=== PATIENT | male | born 1995 | race African-American/Black ===

== ENCOUNTER 2023-07-17 21:54 | Observation (INO) | payer SELFPAY ==
[2023-07-17 16:31] VITALS: BP 160/111
[2023-07-17 18:00] VITALS: BMI 34.9
[2023-07-17 18:01] VITALS: BP 147/84
--- NOTE | 2023-07-17 18:17 | ED.GENMED ---
History of Present Illness
General
Chief Complaint: Numbness
Source: patient
Time Seen by Provider: 07/17/23 18:06
Travel History
Have you had any contact with someone who has COVID-19?: No
Do you have any symptoms of coronavirus? Fever > 100 degrees, chills, cough, shortness of breath, sore throat, loss of taste or smell, muscle aches, or headache?: No
History of Present Illness
History of Present Illness:
27-year-old male otherwise healthy presents with 5 or 6 days worth of numbness to the left side of his body. He states on his face his arm and his leg. He denies any weakness on the left side. He denies any headache current chest pain shortness
of breath. He does note associated generalized fatigue. He denies rash. No vision change. No abdominal pain or nausea or vomiting. He is obvious dehydrated increase his fluid intake this week but symptoms persist.
Phy Exam
Physical Exam
Physical Exam:
General: Well-appearing male no acute respiratory distress
HEENT: Normocephalic atraumatic face is symmetric pupils equal round reactive to light
Heart: Regular rate and rhythm no murmurs lungs: Clear no wheeze or rales
Neurologic alert and oriented x 3 no facial asymmetry no drift on exam bilateral patellar reflexes 1+ Achilles reflexes 1+ bilaterally. Subjectively decreased sensation to light touch on the left leg and left arm.
Skin is warm no rash or lesions
Extremities: No cyanosis
Course
Orders/Labs/Results
Orders:
Orders
07/17/23 18:16
Electrocardiogram (*1) Urgent
Reason for Study: Fatigue / Weakness
CT Head W/o Iv Contrast Urgent
Comment:
Reason For Exam: left sided numbness
EKG- Treatment ONCE
07/17/23 18:35
Complete Blood Count/With Diff Urgent
Comprehensive Metabolic Panel Urgent
Troponin I Urgent
07/17/23 21:40
Urine Drug Abuse Screen Routine
07/17/23 21:42
COVID-19 Antigen Urgent
Source: Nasal Swab
07/18/23 00:00
Troponin I Urgent
07/18/23 06:00
EKG [Electrocardiogram (*1)] IN AM
Reason for Study: Chest Pain
Ferritin IN AM
Troponin I IN AM
Abnormal Lab Results
07/17/23
18:35
RBC 6.36 H 10^6/uL
(4.70-6.10)
MCV 70.0 L fL
(80.0-94.0)
MCH 22.8 L pg
(27.0-31.0)
MCHC 32.6 L g/dL
(33.0-37.0)
RDW 14.6 H %
(11.5-14.5)
Absolute Monos (auto) 0.7 H 10^3/uL
(0.1-0.6)
Monocytes % 11.3 H %
(1.7-9.3)
BUN 8 L mg/dl
(9-20)
Troponin I 0.039 H* ng/ml
07/17/23 18:35
07/17/23 18:35
Vital Signs
Initial and Last Documented VS:
Initial Vital Signs
Temp Pulse Resp BP Pulse Ox
98.2 F 85 20 160/111 95
07/17/23 16:31 07/17/23 16:31 07/17/23 16:31 07/17/23 16:31 07/17/23 16:31
Last Documented Vital Signs
Temp Pulse Resp BP Pulse Ox
98.2 F 81 18 138/95 99
07/17/23 16:31 07/17/23 21:10 07/17/23 21:10 07/17/23 21:10 07/17/23 21:10
MDM/Problems Addressed
Differential Diagnosis Includes:
Patient presents with numbness and paresthesias to left side of body for several days. No obvious neurologic deficit on exam. No current chest pain. Will check labs including EKG troponin CT read pending.
*Critical Care Note
Total Time (30-74mins, 75-104mins- exclusive of procedures): Not Applicable
Update Note
Update Note:
Troponin elevated 0.039. Patient reevaluated and requestioned states at the onset of his symptoms he did have some chest type but has not had some in several days. He just complains currently of fatigue and left-sided numbness. CT of the head was
negative. Neurologically objectively no finding. Possible viral illness or myocarditis. Talk to emergency room attending and will admit to hospital for further troponin evaluation and potential cardiac evaluation
ED Attending Note
-
Portions of this chart may have been created with voice recognition software.� Occasional wrong word or��sound alike� substitutions may have occurred due to the inherent limitations of voice recognition software.
Discharge Plan
Departure
Patient Disposition: Admit
Date of Disposition: 07/17/23
Time of Disposition: 21:45
Admit to: Telemetry
Presentation/result/management discussed w/ accepting MD/DO: Hospitalist
Discharge Problem:
Chest pain
Prescriptions:
No Action
No Current Medications
0
Referrals:
UNKNOWN - PT DOES,NOT KNOW [Unknown Provider] -
Interventions
Interventions:
*Risk Screen - Suicide Last Done: 07/17/23 16:31
*General Assessment Last Done: 07/17/23 16:31
*Neglect/Abuse Screening Last Done: 07/17/23 16:31
ED- Neurological Assessment Last Done: 07/17/23 18:02
Discharge Date and Time
Print Language: IRISH
[2023-07-17 18:45] LABS: % Basophils 0.6 % (0-2); % Eosinophils 3.5 % (0-6); % Immature Granulocytes 0.3 % (0-0.5); % Lymphocytes 32.4 % (20.5-51.1); % Monocytes 11.3 % (1.7-9.3); % Neutrophils 51.9 % (42.2-75.2); Absolute Eosinophils 0.2 10^3/uL (0-0.7); Absolute Lymphocytes 2.1 10^3/uL (1.2-3.4); Absolute Monocytes 0.7 10^3/uL (0.1-0.6); Absolute Neutrophils 3.4 10^3/uL (1.4-6.5); Hematocrit 44.5 % (39.0-52.0); Hemoglobin 14.5 g/dL (13.0-18.0); Mean Corp Hgb Conc. 32.6 g/dL (33.0-37.0); Mean Corpuscular Hgb 22.8 pg (27.0-31.0); Mean Platelet Volume 9.4 fL (7.4-10.4); Nucleated Red Blood Cells % 0 % (-); Platelet Count 249 10^3/uL (130-400); Red Blood Cell Count 6.36 10^6/uL (4.70-6.10); Red Cell Dist. Width 14.6 % (11.5-14.5); White Blood Cell Count 6.5 10^3/uL (4.8-10.8)
[2023-07-17 19:07] LABS: ALT (SGPT) 33 U/L (0-50); AST (SGOT) 37 U/L (17-59); Albumin 4.5 g/dl (3.5-5.0); Alkaline Phosphatase 56 U/L (38-126); Blood Urea Nitrogen 8 mg/dl (9-20); Calcium 9.7 mg/dl (8.4-10.2); Carbon Dioxide 26 mmol/L (22-30); Chloride 106 mmol/L (98-107); Estimated Creatinine Clearance > 125 ml/min; Glucose 85 mg/dl (70-99); Potassium 4.5 mmol/L (3.5-5.1); Sodium 139 mmol/L (135-145); Total Bilirubin 0.6 mg/dl (0.2-1.3); Total Protein 7.4 g/dl (6.3-8.2); eGFR > 60.00
[2023-07-17 19:18] LABS: Troponin I 0.039 ng/ml
[2023-07-17 21:10] VITALS: BP 138/95
--- NOTE | 2023-07-17 21:52 | HPS.HSE ---
Addendum entered and electronically signed by Surinder Celestin MD 07/18/23 12:05:
Laboratory Tests
07/17/23 07/18/23
22:10 06:34
ESR 3
C-Reactive Protein 7.90
SARS-CoV-2 Antigen Negative
NEG UDS
Original Note:
Family Physician
-
Family Physician: Remi Landa
Chief Complaint
-
fatigue and left sided numbness
History of Present Illness
HPI
27M no prior PMHx:
Numbness at Lt side of the body including face, arm and Leg
- acute onset
- persist for last 5- 6 days
- Denies any headache
- No current chest pain shortness of breath
- Reports slight Lt shoulder pain
- No exacerbating and relieving factors
- No prior chronic neck pain
- Denied substance abuse
Medical History
Past Medical History
Past Medical History: Reports None
Past Surgical History: Reports None
Social History
Tobacco: Non-smoker
Alcohol: Occasional
Drug: None
Personal: Single
Living: With Family
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
Family History
Family History: Not pertinent
Allergies / Home Medications
Allergies reflects when Allergies were last updated in [employer].
Home Medications with original date entered in [employer]
Allergy/Medication List:
Allergies
Allergy/AdvReac Type Severity Reaction Status Date / Time
oxycodone [From OxyContin] Allergy Nausea / Verified 07/17/23 18:01
Vomiting
Home Medications
No Meds [No Current Medications] 07/17/23
Review of Systems
-
Constitutional: Reports Fatigue
EENT: Reports No Symptoms
Respiratory: Reports No Symptoms
Cardiac: Reports No Symptoms
Abdomen/GI: Reports No Symptoms
: Reports No Symptoms
Musculoskeletal: Reports See HPI
Skin: Reports No Symptoms
Neurological: Reports No Symptoms
Endocrine: Reports No Symptoms
Hematologic/Lymphatic: Reports No Symptoms
Psych: Reports No Symptoms
Physical Exam
Vital Signs
Vital Signs
Temp Pulse Resp BP Pulse Ox
98.2 F 81 18 138/95 99
07/17/23 16:31 07/17/23 21:10 07/17/23 21:10 07/17/23 21:10 07/17/23 21:10
Physical Exam
General: No Apparent Distress, Comfortable and Conversant
HEENT: NormoCephalic, Anicteric, Moist mucous membranes and Atraumatic
Respiratory: Clear; No Wheezes, Rales or Rhonchi
Cardiac: S1/S2 and Regular Rhythm
Breast: Deferred by me
GI: Soft, Non Tender, Non Distended and Normal Bowel Sounds
Rectal: Deferred by Provider
Genito-urinary: Deferred by me
Musculoskeletal: No Edema
Skin: Warm and Dry
Neuro: AO x 3, No Motor Deficits and No Sensory Deficits (subjective lower sensation at Lt face, Lt inner upper extremities )
Hematologic/Lymphatic: No Lymphadenopathy
Psych: Calm
Laboratory Results
-
07/17/23 18:35
07/17/23 18:35
Laboratory Results
Total Bilirubin 0.6 mg/dl (0.2-1.3) 07/17/23 18:35
AST 37 U/L (17-59) 07/17/23 18:35
ALT 33 U/L (0-50) 07/17/23 18:35
Alkaline Phosphatase 56 U/L (38-126) 07/17/23 18:35
Troponin I 0.039 ng/ml H* 07/17/23 18:35
Data Reviewed
-
CT Scan: Report Reviewed by me
Medical Tests (Nuc Med, Echo, EKG etc): Report Reviewed by me
Lab Data: Labs Reviewed by me
Impression/Plan
-
Reviewed VS: Afebrile. Unremarkable VS and stable
Data
Unremarkable CBC
MCV 70
BUN 8
Unremarkable CMP
TPNI 0.039 and trend q6H
Pending Covid Ag
Pending UDS
Pending Ferritin
Pending ESR, CRP
EKG report:
NORMAL SINUS RHYTHM WITH SINUS ARRHYTHMIA
NONSPECIFIC T WAVE ABNORMALITY
ABNORMAL ECG
NO PREVIOUS ECGS AVAILABLE
HCT: normal
NO PRIOR admission to
ASSESSMENT & PLAN
Not on any regular meds reconciliation
Acute onset of numbness at Lt side of the body including face, arm amd Leg persist for last 5- 6 days
Abnormal TPNI but denied CP
DDX: myocarditis
- Normal EKG. Normal HCT
- Pending ESR, CRP
- NSAIDS PRN
- ECHO in AM
- To trend TPNI q6hrs
- DCA card consult
Fatigue
- uncertain etiology
- Pending Covid Ag
- Pending UDS
DVT Px: SCDs
Code: Full
Obs TLM
[2023-07-17 22:31] LABS: COVID-19 Antigen Negative (Negative)
[2023-07-17 22:42] VITALS: BP 155/102
[2023-07-17] MEDS: MOTRIN 600 MG PO (23:06)
--- NOTE | 2023-07-17 23:30 | PTCARENOTE ---
Patient initiated on radiation monitor #[id number] upon arrival from ED -- SR/ST HR 100s. Call maldonado within reach, will monitor.
[2023-07-17 23:33] VITALS: BP 154/113; BMI 33.1
[2023-07-18 00:23] VITALS: BP 149/108
[2023-07-18 00:40] LABS: Troponin I 0.015 ng/ml
[2023-07-18] MEDS: TYLENOL 650 MG PO (00:54)
[2023-07-18 01:13] LABS: Amphetamines Negative (Negative); Barbiturates Negative (Negative); Benzodiazepines Negative (Negative); Buprenorphine Negative (Negative); Cocaine Negative (Negative); Marijuana Negative (Negative); Methadone Negative (Negative); Methamphetamines Negative (Negative); Opiates Negative (Negative); Phencyclidine Negative (Negative); Tricyclic Antidepressants Negative (Negative)
[2023-07-18 03:37] VITALS: BP 140/84
[2023-07-18] MEDS: MOTRIN 600 MG PO ×2 (05:42→11:12)
[2023-07-18 07:00] VITALS: BP 135/96
[2023-07-18 07:25] LABS: % Basophils 0.4 % (0-2); % Eosinophils 3.5 % (0-6); % Immature Granulocytes 0.3 % (0-0.5); % Lymphocytes 34.4 % (20.5-51.1); % Monocytes 11.3 % (1.7-9.3); % Neutrophils 50.1 % (42.2-75.2); Absolute Eosinophils 0.3 10^3/uL (0-0.7); Absolute Lymphocytes 2.6 10^3/uL (1.2-3.4); Absolute Monocytes 0.9 10^3/uL (0.1-0.6); Absolute Neutrophils 3.8 10^3/uL (1.4-6.5); Hematocrit 43.9 % (39.0-52.0); Mean Corp Hgb Conc. 31.9 g/dL (33.0-37.0); Mean Corpuscular Hgb 22.9 pg (27.0-31.0); Mean Corpuscular Volume 71.8 fL (80.0-94.0); Mean Platelet Volume 9.3 fL (7.4-10.4); Nucleated Red Blood Cells % 0 % (-); Platelet Count 258 10^3/uL (130-400); Red Blood Cell Count 6.11 10^6/uL (4.70-6.10); Red Cell Dist. Width 14.6 % (11.5-14.5); White Blood Cell Count 7.5 10^3/uL (4.8-10.8)
[2023-07-18] MEDS: PROTONIX 40 MG PO (07:42)
[2023-07-18 07:45] LABS: Troponin I < 0.012 ng/ml
[2023-07-18 08:11] LABS: ALT (SGPT) 31 U/L (0-50); AST (SGOT) 30 U/L (17-59); Albumin 4.2 g/dl (3.5-5.0); Alkaline Phosphatase 60 U/L (38-126); Blood Urea Nitrogen 11 mg/dl (9-20); Calcium 9.4 mg/dl (8.4-10.2); Carbon Dioxide 26 mmol/L (22-30); Chloride 106 mmol/L (98-107); Estimated Creatinine Clearance > 125 ml/min; Glucose 87 mg/dl (70-99); HDL Cholesterol 44 mg/dl; Sodium 138 mmol/L (135-145); Total Bilirubin 0.4 mg/dl (0.2-1.3); Total Protein 6.9 g/dl (6.3-8.2); eGFR > 60.00
[2023-07-18 08:14] LABS: Triglyceride 468 mg/dl (10-149)
[2023-07-18 08:21] LABS: Total Cholesterol 298 mg/dl (50-199)
[2023-07-18 08:37] LABS: LDL Cholesterol, Direct 170 mg/dl
[2023-07-18 08:56] LABS: Ferritin 35.7 ng/ml (17.9-464.0)
[2023-07-18 09:05] LABS: Erythrocyte Sed Rate 3 mm/hour (0-20)
--- NOTE | 2023-07-18 09:31 | CON.CAR ---
Consultation
Consultation Request
Date/Time Consultation Requested: 07/18/2023 at 8 AM
Date/Time Consultation Performed: 07/18/2023 at 10 AM
Requesting Provider: Dr. Celestin
Performing Provider: Dat Lo MD
Reason for Consultation: Detectable troponin
Medical History
Allergies / Home Medications
Allergy/AdvReac Type Severity Reaction Status Date / Time
oxycodone [From OxyContin] Allergy Nausea / Verified 07/17/23 18:01
Vomiting
�Medication �Instructions �Recorded �Confirmed �Type
No Meds [No Current Medications] 07/17/23 07/17/23 History
Physical Exam
Vital Signs
Temp Pulse Resp BP Pulse Ox
36.7 C 78 16 135/96 97
07/18/23 07:00 07/18/23 07:00 07/18/23 07:00 07/18/23 07:00 07/18/23 07:00
Lab Results
07/18/23 06:34
07/18/23 06:34
Troponin I < 0.012 ng/ml 07/18/23 06:34
Impression / Plan
-
Impression:
Minimally detectable troponin and 27-year-old man with paresthesias left side
Data Reviewed
-
EKG: Tracing Personally Visualized and interpreted (Sinus arrhythmia, nonspecific ST and T changes suspect pericarditis)
Labs: Labs Reviewed by me (Troponin is 0.039)
--- NOTE | 2023-07-18 09:37 | CON.CAR ---
Addendum entered and electronically signed by Dat Lo MD 07/18/23 10:59:
27-year-old man with little past medical historyWho over the last week has developed vague paresthesias of the left face and possibly of the left lower extremity along with vague left shoulder discomfort. Presented to the emergency department with
EKG changes suggesting pericarditis and troponin of 0.039. Currently feels relatively comfortable. No recent viral illness. Grandmother has Sjogren's syndrome.
PMH: Negative except for sleep apnea
PSH: Tonsillectomy, septoplasty, herniorrhaphy, right knee procedure for [place]-Schlatter's disease
Allergies: Oxycodone
Tobacco, recreational drugs: Negative
FH: Grandmother with Sjogren's
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
ROS: 50+ pounds of weight gain since high school
135/96, pulse 78, afebrile,
No distress, head neck exam unremarkable, lungs clear, no rub, JVD carotids okay, abdomen obese, extremities without clubbing cyanosis or edema neuro nonfocal (grossly) musculoskeletal intact
EKG pericarditis
Total cholesterol: 298, triglycerides 400, LDL 170, 44 HDL
Echocardiogram: Mild LVH normal LV function trace MR no pericardial effusion
Impression:
Pericarditis
Paresthesias
Hypercholesterolemia
Elevated blood pressure
Plan:
He presents with an EKG that is strongly suggestive of pericarditis, likely idiopathic though autoimmune etiologies may need to be considered as an outpatient. His symptoms are mild, and his echo is normal.
Will treat with colchicine and use nonsteroidals.
Lifestyle modification will be important given that he has LVH and marked hypercholesterolemia and is probably hypertensive.
Defer to primary service whether neurologic evaluation is required given his other vague symptoms.
His echocardiogram is satisfactory.
We will arrange for cardiac follow-up, okay to proceed with discharge planning.
Original Note:
Consultation
Consultation Request
Date/Time Consultation Requested: 07/17/2023
Date/Time Consultation Performed: 07/18/2023
Requesting Provider: Dr. Celestin
Performing Provider: Maria G Redding PA-C for Dr. Lo
Reason for Consultation: Chest pain
Medical History
-
History of Present Illness:
Patient is a rather healthy 27-year-old male with no significant past medical history who presented 07/17/2023 with left sided shoulder pain radiating into her back associated with numbness of left side of body including face, arm and leg x 5 to 6
days and generalized fatigue. Patient reports he is a otherwise healthy active gentleman who exercises 2-3 times a week at the gym without concerning cardiac symptoms. Given ongoing symptoms he decided to seek emergency medical treatment. In
emergency department EKG showed sinus rhythm with sinus arrhythmia and nonspecific ST T wave elevation, repeat EKG slightly more pronounced with concerns for pericarditis. Troponin was noted to be mildly elevated at 0.039 then trended downwards
there after. Head CT was unremarkable. Urine drug screen was negative. Placed on Motrin on admission and notes improvement but not resolution of sharp shooting left shoulder pain.
Past medical history:
Mixed hyperlipidemia
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
Right inguinal hernia repair
Septoplasty
Tonsillectomy
Past Medical History
Past Medical History: None
Past Surgical History: Tonsilectomy and Other (Right inguinal hernia repair, septoplasty, orthopedic surgery [place]-Schlatter of right knee)
Social History
Tobacco: Non-Smoker
Alcohol: Occasional (Drinks 2-3 times a week)
Drug: None
Personal: Single
Living: With Family
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
Family History
Family History: Other (Maternal grandmother had sjogrens)
Allergies / Home Medications
Allergy/AdvReac Type Severity Reaction Status Date / Time
oxycodone [From OxyContin] Allergy Nausea / Verified 07/17/23 18:01
Vomiting
�Medication �Instructions �Recorded �Confirmed �Type
No Meds [No Current Medications] 07/17/23 07/17/23 History
Review of Systems
-
History Source: Patient
All other systems: Negative unless noted
Physical Exam
Vital Signs
Temp Pulse Resp BP Pulse Ox
98.1 F 78 16 135/96 97
07/18/23 07:00 07/18/23 07:00 07/18/23 07:00 07/18/23 07:00 07/18/23 07:00
GEN: No distress, awake, Ox3
HEENT: supple, anicteric, mmm
LUNGS: CTA, no wheezes/rales
CV: Reg, S1/S2, no murmur, rub or gallop
ABD: soft, BS+, NT/ND
EXT: No edema, clubbing or cyanosis
NEURO: Gross non-focal
SKIN: No rash, warm, dry
Lab Results
07/18/23 06:34
07/18/23 06:34
Troponin I < 0.012 ng/ml 07/18/23 06:34
Impression / Plan
-
PCP: Remi Landa
Clerical Support: None prior to admission
Impression:
Presented 07/17/2023 with left-sided shoulder pain radiating to back as well as left-sided paresthesias x 5 to 6 days
Generalized fatigue
Minimally elevated troponin peak 0.039
Abnormal EKG concerning for pericarditis
Idiopathic pericarditis
Mixed hyperlipidemia
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
Right inguinal hernia repair
Septoplasty
Tonsillectomy
Echo 07/18/2023: Pending
Plan:
Patient is a rather healthy 27-year-old male with no significant past medical history who presented 07/17/2023 with left sided shoulder pain radiating into her back associated with numbness of left side of body including face, arm and leg x 5 to 6
days and generalized fatigue. Patient reports he is a otherwise healthy active gentleman who exercises 2-3 times a week at the gym without concerning cardiac symptoms. Given ongoing symptoms he decided to seek emergency medical treatment. In
emergency department EKG showed sinus rhythm with sinus arrhythmia and nonspecific ST T wave elevation, repeat EKG slightly more pronounced with concerns for pericarditis. Troponin was noted to be mildly elevated at 0.039 then trended downwards
there after. Head CT was unremarkable. Urine drug screen was negative. Placed on Motrin on admission and notes improvement but not resolution of sharp shooting left shoulder pain.
-Presented 07/17/2023 with left-sided shoulder pain radiating into back, paresthesias including face, arm and leg x 5 to 6 days with generalized fatigue
-Minimally detectable troponin, peaked at 0.039.
-CRP 7.9
-EKG shows sinus rhythm with mild nonspecific ST-T wave elevation with concerns for possible pericarditis
-Will check echocardiogram - results pending
-Started on Motrin 600 mg 4 times daily with improvement of symptoms
-Clinical picture fits idiopathic pericarditis. Will start colchicine 0.6 mg twice a day x 3 months. Would continue Motrin. Discussed once shoulder/back pain resolved can wean off Motrin but continue on colchicine
-Mixed hyperlipidemia on lipid profile 07/18/2023 TC 298, HDL 44, direct LDL 170, triglycerides 468; admits dietary indiscretion. Discussed adhering to low triglyceride low-fat diet. Would consider repeating lipids in 3 to 6 months with lifestyle
modification and if it remains suboptimally controlled then consider addition of statin and or fenofibrate
-Check hemoglobin A1c given elevated triglycerides
-Will arrange for outpatient cardiology follow-up in 4 to 6 weeks
Plan was reviewed with the patient and Dr. Youssef
Data Reviewed
-
EKG: Report Reviewed by me, Discussed with Physician and Discussed with Patient
CT Scan: Report Reviewed by me, Discussed with Physician and Discussed with Patient
Labs: Labs Reviewed by me, Discussed with Physician and Discussed with Patient
Old Records: Reviewed
--- NOTE | 2023-07-18 10:32 | CM ---
CM met with pt.
Pt reports living alone. Independent prior to admission with ADL's and ambulation. Uses no DME. +[employer]. Lives in second level duplex with [address].
Pt reports having insurance, [employer] and is looking for his card. No insurance listed on facesheet.
Discharge dispo, no skilled dc needs anticipated.
Pt currently receiving medical workup for ? myocarditis/CP/left sided parasthesia. Echo pending.
CM to follow and assist.
[2023-07-18 11:00] VITALS: BP 136/91
[2023-07-18] MEDS: COLCHICINE 0.599999999999999978 MG PO (11:12)
--- NOTE | 2023-07-18 11:30 | W.PN.HOSP.TC ---
Today's Communication/Plan
-
d/c
Assessment / Plan
Assessment / Plan
pt is a 27 year old male
Acute onset of numbness at Lt side of the body including face, arm and Leg persist for last 5-6 days --head CT neg--unclear cause--f/u with primary as outpt--may need neuro referral
chest pain with Abnormal troponin--EKG suggestive of pericarditis--apprec cards--ECHO WNL--colchicine/NSAIDS--OK for d/c
Fatigue- uncertain etiology--covid/UDS neg
Anticipated Discharge: Today
Subjective/Interval History
-
Date of Service: July 18, 2023
pt c/o left sided chest, back, and shoulder pain
Objective Data
-
Labs:
Laboratory Results
07/18/23
06:34
WBC 7.5
Hgb 14.0
Hct 43.9
Plt Count 258
Sodium 138
Potassium 4.0
Chloride 106
Carbon Dioxide 26
BUN 11
Creatinine 0.9
Glucose 87
Calcium 9.4
Total Bilirubin 0.4
AST 30
ALT 31
Alkaline Phosphatase 60
Vital Signs:
max temp for 24 hours
07/17/23
23:33
Temp 98.7 F
Vital Signs
Temp Pulse Resp BP Pulse Ox
98.1 F 78 16 135/96 97
07/18/23 07:00 07/18/23 07:00 07/18/23 07:00 07/18/23 07:00 07/18/23 07:00
I&O
07/17/23 07/18/23 07/19/23
06:59 06:59 06:59
Intake Total 800 / 800
Balance 800 / 800
Review of Systems
-
All other systems: Reviewed and negative
Cardiac: Reports Chest Pain
Musculoskeletal: Reports Joint Pain (left shoulder)
Physical Exam
-
General: Well Developed, Well Nourished and No Apparent Distress
HEENT: Normocephalic and Atraumatic
Respiratory: Clear to Auscultation; Negative Wheezes or Rhonchi
Cardiac: Regular Rhythm and S1/S2; Negative Murmur or Rub
GI: Soft, Nontender, Nondistended and Normal Bowel Sounds
Musculoskeletal: No Clubbing, No Cyanosis and No Edema
Neuro: Awake and Alert
Psych: Calm
--- NOTE | 2023-07-18 14:20 | W.DCSUMMARY ---
Discharge Summary
Discharge Data
Date of Admission: 07/17/23
Date of Discharge: 07/18/23
-
Pending Results: No
Hospital Course
Primary care physician : Remi Landa
Principal Discharge diagnosis : Chest pain with abnormal troponin, paresthesias
Chronic Discharge diagnosis : None
Hospital Course : Patient was a 27-year-old male without any past medical history who started complaining of numbness on the left side of his body for 5 to 6 days prior to admission. He also admits to chest pain on the left side of his chest into
his back and left shoulder. He denied any shortness of breath or headache. Troponin was found to be mildly elevated. Patient was admitted.
Problem #1: Chest pain with abnormal troponin. EKG was suggestive of pericarditis. Troponins were checked and showed 0.039, 0.015, less than 0.012. He was seen in consultation by cardiology. Echocardiogram was done and is within normal limits.
He was started on colchicine and nonsteroidal medications. He has been cleared for discharge with cardiac follow-up.
Problem #2: Paresthesia. This predates his chest pain. CAT scan of his head was within normal limits. If this does not improve with treatment of the pericarditis, would follow-up with primary care physician for possible neurologic referral.
Patient is stable for discharge home at this time. If there are any questions regarding this dictation or his hospital stay, please not hesitate to call. Our office number is [phone].
Important imaging findings :
CT SCAN HEAD IMPRESSION:
Normal.
Procedure findings :
ECHOCARDIOGRAM CONCLUSIONS:
1. Mild concentric left ventricular hypertrophy with preserved systolic
function, EF 55-60%
2. Trace mitral regurgitation
3. Normal aortic valve
4. Normal right heart with normal pulmonary artery systolic pressure
5. Normal pericardium
There are no prior studies available for comparison.
Discharge Plan
-
Patient Disposition: Home (Routine Discharge)
Discharge Diagnosis/Procedures: Numbness/paresthesias, chest pain with abnormal troponin suggestive of pericarditis
Condition: Good
Diet: As tolerated and Regular
Activity: As tolerated
Driving Restrictions: As prior to admission
Bathing Restrictions: None
Referrals:
Maria G Redding PA-C [Specified Professional Personl] - 08/19/23 10:40 am (You have cardiology follow-up with Maria G Redding PA-C on August 18 at 10:40 AM in [facility] in [address] [place] which is located behind the hospital. If you are unable to make this
appointment please call [phone] to reschedule)
Remi Landa, DO [Family Provider] - in less than 1 week
Prescriptions:
New
colchicine 0.6 mg Tablet
0.6 mg PO BID Qty: 60 0RF
ibuprofen 600 mg Tablet
600 mg PO Q6H Qty: 0 0RF
Rx Instructions:
Take on a full stomach
Discharge Orders:
Discharge Patient (As Directed); Ordered 07/18/23
Ordered By: Andressa Youssef
Discharge Date and Time
Discharge Date/Time: 07/18/23 12:58
Print Language: AMHARIC
[2023-07-19 09:54] LABS: Glycohemoglobin (HgbA1c) 5.8 % (4.0-5.6)
== END 2023-07-18 12:58 | disposition home or self-care (01) ==
LOC: 3 WEST ACU 21:54
PROVIDERS: Clinical Nurse Specialist Family Health; Physician Assistant; ADMITTING PHYSICIAN Internal Medicine; ATTENDING PHYSICIAN Internal Medicine; CONSULT PHYSICIAN Internal Medicine Cardiovascular Disease; EMERGENCY PHYSICIAN Student in an Organized Health Care Education/Training Program; FAMILY PHYSICIAN Family Medicine
DX: R07.89 Other chest pain (principal); R20.2 Paresthesia of skin; E78.2 Mixed hyperlipidemia; R77.8 Other specified abnormalities of plasma proteins; R53.83 Other fatigue; Z11.52 Encounter for screening for COVID-19
CPT/HCPCS: 70450; 80053; 80061; 80306; 82728; 83036; 83721; 84484; 85025; 85652; 86140; 87811; 93005; 93306; 99285; G0378